=== PATIENT | male | born 1990 | race Caucasian/White ===

== ENCOUNTER → 2018-12-09 | Outpatient (CLI) | payer OTHER ==
--- NOTE | 2018-12-09 14:07 | REP ---
THYROID ULTRASOUND: Real-time sonographic evaluation of thyroid performed. Right lobe is slightly larger than left, right lobe measuring 5.1 x 1.6 x 1.4 cm and left lobe 4.1 x 1.7 x 1.1 cm. There is a hypoechoic nodule in the left lobe mid aspect somewhat posteriorly measuring 4 mm in diameter. No other cystic or solid nodule is seen. IMPRESSION: Slight enlargement of the right lobe of the thyroid. 4 mm nodule left lobe. Electronically Signed by Reji Davalos MD 12/10/2018 10:25 A
== END ==
LOC: M RAD 09:53
PROVIDERS: ATTEND Physician Assistant
DX: E04.9 Nontoxic goiter, unspecified (principal)

== ENCOUNTER → 2019-07-22 | Outpatient (CLI) | payer OTHER ==
--- NOTE | 2019-07-22 13:56 | REP ---
O two-view chest: 07/22/2019. Indication: Dyspnea. Comparison: 10/20/2009. Findings: The lungs are clear. There is no pleural effusion or pneumothorax. The cardiomediastinal silhouette is normal. Impression: No acute cardiopulmonary process. Electronically Signed by Aubrey Baker DO 07/22/2019 01:48 P
== END ==
LOC: M CLY 13:33
PROVIDERS: ATTEND Physician Assistant
DX: J22 Unspecified acute lower respiratory infection (principal)

== ENCOUNTER → 2020-09-13 | Outpatient (CLI) | payer SELFPAY | LOC: M LABSMTC 12:00 | PROVIDERS: ATTEND Pediatrics | DX: Z20.822 Contact with and (suspected) exposure to COVID-19 (principal) ==

== ENCOUNTER 2021-09-23 19:09 | Emergency (ER) | payer MEDICAID, OTHER, SELFPAY ==
[~2021-09-23] VITALS: Ht 167.6 cm; Wt 84.0 kg
[2021-09-23 20:51] LABS: HEMATOCRIT 49.7 % (42.0-52.0); HEMOGLOBIN 16.9 g/dl (13.5-17.5); MEAN CORPUSCULAR HEMOGLOBIN 32.3 pg (27.0-33.0); PLATELET COUNT, AUTOMATED 279 10^3/uL (150-450); RED BLOOD COUNT 5.23 10^6/uL (4.30-6.10); WHITE BLOOD COUNT 15.9 10^3/uL (4.0-10.0)
[2021-09-23 21:05] LABS: AMPHETAMINES LEVEL URINE NEGATIVE (NEGATIVE); BARBITURATES URINE NEGATIVE (NEGATIVE); BENZODIAZEPINES URINE NEGATIVE (NEGATIVE); CANNABINOIDS URINE POSITIVE (NEGATIVE); COCAINE METABOLITE URINE POSITIVE (NEGATIVE); METHADONE URINE NEGATIVE (NEGATIVE); OPIATES URINE NEGATIVE (NEGATIVE); PHENCYCLIDINE URINE NEGATIVE (NEGATIVE)
[2021-09-23 21:26] LABS: ACETAMINOPHEN LEVEL < 2.0 UG/ML (10.0-30.0); ALBUMIN 4.3 GM/DL (3.2-5.2); ALT/SGPT 38 U/L (12-78); BILIRUBIN,DIRECT 0.1 MG/DL (0.0-0.2); BILIRUBIN,TOTAL 0.3 MG/DL (0.2-1.0); BLOOD UREA NITROGEN 11 MG/DL (7-18); CALCIUM LEVEL 9.2 MG/DL (8.5-10.1); CARBON DIOXIDE LEVEL 25 MEQ/L (21-32); CHLORIDE LEVEL 108 MEQ/L (98-107); CREATININE FOR GFR 0.94 MG/DL (0.70-1.30); ETHYL ALCOHOL (ETHANOL) 0.117 % (0.000-0.010); GLOMERULAR FILTRATION RATE > 60.0 (>60); GLUCOSE, FASTING 67 MG/DL (70-100); POTASSIUM SERUM 4.4 MEQ/L (3.5-5.1); SALICYLATE LEVEL 4.8 MG/DL (5.0-30.0); SODIUM LEVEL 142 MEQ/L (136-145); THYROID STIMULATING HORMONE 0.735 uIU/ML (0.358-3.740); TOTAL PROTEIN 7.6 GM/DL (6.4-8.2)
[2021-09-24 00:34] VITALS: BP 126/75
== END 2021-09-24 00:45 | disposition home or self-care (01) ==
LOC: M ED 19:09
DX: F43.0 Acute stress reaction (principal); F10.10 Alcohol abuse, uncomplicated; F17.200 Nicotine dependence, unspecified, uncomplicated; Z63.0 Problems in relationship with spouse or partner

== ENCOUNTER → 2022-07-02 | Outpatient (REF) | payer OTHER ==
[2022-07-02 18:23] LABS: BASO # 0.1 10^3/uL (0.0-0.2); BASO % 0.7 % (0.0-1.0); EOS # 0.1 10^3/uL (0.0-0.5); EOS % 1.6 % (0.0-3.0); HEMATOCRIT 50.1 % (42.0-52.0); HEMOGLOBIN 16.8 g/dl (13.5-17.5); LYMPH # 2.6 10^3/uL (1.5-5.0); LYMPH % 29.6 % (24.0-44.0); MEAN CORPUSCULAR HEMOGLOBIN 32.6 pg (27.0-33.0); MEAN CORPUSCULAR HGB CONC 33.5 g/dl (32.0-36.5); MEAN CORPUSCULAR VOLUME 97.3 fl (80.0-96.0); MONO # 0.9 10^3/uL (0.0-0.8); MONO % 9.6 % (2.0-8.0); NEUTROPHILS # 5.1 10^3/uL (1.5-8.5); NEUTROPHILS % 57.9 % (36.0-66.0); PLATELET COUNT, AUTOMATED 298 10^3/uL (150-450); RED BLOOD COUNT 5.15 10^6/uL (4.30-6.10); WHITE BLOOD COUNT 8.9 10^3/uL (4.0-10.0)
[2022-07-02 19:31] LABS: ALBUMIN 3.8 GM/DL (3.2-5.2); ALT/SGPT 33 U/L (12-78); BILIRUBIN,TOTAL 0.5 MG/DL (0.2-1.0); BLOOD UREA NITROGEN 10 MG/DL (7-18); CALCIUM LEVEL 9.2 MG/DL (8.5-10.1); CARBON DIOXIDE LEVEL 28 MEQ/L (21-32); CHLORIDE LEVEL 103 MEQ/L (98-107); CHOLESTEROL LEVEL 300 MG/DL (<200); CHOLESTEROL RISK RATIO 4.687 (<5); FREE T4 1.05 NG/DL (0.76-1.46); GLOMERULAR FILTRATION RATE > 60.0 (>60); GLUCOSE, FASTING 95 MG/DL (70-100); HDL CHOLESTEROL 64 MG/DL (>40); LDL CHOLESTEROL 212 MG/DL (<100); NON-HDL-C 236 MG/DL; POTASSIUM SERUM 4.9 MEQ/L (3.5-5.1); SODIUM LEVEL 137 MEQ/L (136-145); TOTAL PROTEIN 7.1 GM/DL (6.4-8.2); TRIGLYCERIDES LEVEL 119 MG/DL (<150)
[2022-07-02 19:40] LABS: APPEARANCE, URINE MANUAL CLEAR (CLEAR); COLOR, URINE MANUAL YELLOW (YELLOW)
[2022-07-02 19:41] LABS: SPECIFIC GRAVITY,URINE MANUAL 1.005 (1.002-1.035)
[2022-07-02 19:42] LABS: BILIRUBIN, URINE MANUAL NEGATIVE (NEGATIVE); BLOOD URINE MANUAL NEGATIVE (NEGATIVE); GLUCOSE, URINE (UA) MANUAL NEGATIVE (NEGATIVE); KETONE, URINE MANUAL NEGATIVE (NEGATIVE); LEUKOCYTE ESTERASE, URINE MAN NEGATIVE (NEGATIVE); NITRITE, URINE MANUAL NEGATIVE (NEGATIVE); PROTEIN, URINE MANUAL NEGATIVE (NEGATIVE); UROBILINOGEN, URINE MANUAL NORMAL (NORMAL)
[2022-07-02 20:12] LABS: GC DNA AMPLIFICATION NEGATIVE (NEGATIVE)
[2022-07-02 21:48] LABS: HEPATITIS C VIRUS ABY INDEX 0.1 INDEX (<0.8)
[2022-07-02 22:32] LABS: TOTAL 25(OH) VITAMIN D 14.4 NG/ML (30.0-100.0); VITAMIN B12 LEVEL 277 PG/ML
[2022-07-02 22:33] LABS: FOLATE 7.5 NG/ML
[2022-07-03 06:43] LABS: HIV 1&2 SCREEN CENTAUR NEGATIVE (NEGATIVE)
== END ==
LOC: M SFHCCAPE 07:47
PROVIDERS: ATTEND Physician Assistant
DX: E78.00 Pure hypercholesterolemia, unspecified (principal); E55.9 Vitamin D deficiency, unspecified; I10 Essential (primary) hypertension

== ENCOUNTER → 2022-10-18 | Outpatient (REF) | payer OTHER | LOC: M LAB REF 16:33 | PROVIDERS: ATTEND Surgery | DX: L72.3 Sebaceous cyst (principal) ==

== ENCOUNTER → 2024-12-28 | Outpatient (CLI) | payer OTHER | LOC: M WUC 15:05 | PROVIDERS: ATTEND Nurse Practitioner Family | DX: M25.511 Pain in right shoulder (principal) ==

== ENCOUNTER → 2025-01-01 | Outpatient (CLI) | payer OTHER | LOC: M SOG 07:01 | PROVIDERS: ATTEND Physician Assistant | DX: M79.641 Pain in right hand (principal) ==